=== PATIENT | female | born 1975 | race Caucasian/White ===

== ENCOUNTER → 2024-02-18 15:25 | Outpatient (REF) | payer BC, SELFPAY | LOC: RAD 15:25 | PROVIDERS: ATTENDING PHYSICIAN Nurse Practitioner Family; FAMILY PHYSICIAN Internal Medicine | DX: E04.1 Nontoxic single thyroid nodule (principal) | CPT/HCPCS: 76536 ==

== ENCOUNTER 2024-10-27 06:15 | Day surgery (SDC) | payer BC, SELFPAY | END 2024-10-27 09:35 | disposition home or self-care (01) | LOC: GI 06:15 | PROVIDERS: ATTENDING PHYSICIAN Surgery; FAMILY PHYSICIAN Internal Medicine | DX: Z12.11 Encounter for screening for malignant neoplasm of colon (principal); D12.5 Benign neoplasm of sigmoid colon; K64.9 Unspecified hemorrhoids | CPT/HCPCS: 45380; 88305 ==